=== PATIENT | female | born 1960 | race Caucasian/White ===

== ENCOUNTER 2019-10-10 10:41 | Emergency (ER) | payer BC ==
[~2019-10-10] VITALS: Ht 177.8 cm; Wt 78.5 kg
[2019-10-10 10:46] VITALS: BP_SYST 136
[2019-10-10] MEDS ORDERED: IBUPROFEN 600 MG TABLET PO ONE (11:30)
[2019-10-10 12:20] VITALS: BP_SYST 144
== END 2019-10-10 12:20 | disposition home or self-care (01) ==
LOC: SED 10:41
DX: S93.401A Sprain of unspecified ligament of right ankle, initial encounter (principal); S63.612A Unspecified sprain of right middle finger, initial encounter; S63.614A Unspecified sprain of right ring finger, initial encounter; S50.02XA Contusion of left elbow, initial encounter; S80.11XA Contusion of right lower leg, initial encounter; Z88.0 Allergy status to penicillin; Y04.0XXA Assault by unarmed brawl or fight, initial encounter; Y93.89 Activity, other specified; Y92.89 Other specified places as the place of occurrence of the external cause; Y99.8 Other external cause status
CPT/HCPCS: 73140-TC; 99284